=== PATIENT | male | born 1965 | race Caucasian/White ===

== ENCOUNTER 2019-04-11 15:03 | Outpatient (CLI) | payer OTHER ==
[2019-04-11 16:48] LABS: BASOPHILS % (AUTO) 0.3 % (0-1); EOSINOPHILS # (AUTO) 0.2 X10'3 (0-0.9); HEMATOCRIT 42.9 % (42.0-52.0); HEMOGLOBIN 14.7 g/dl (14.0-17.9); LYMPHOCYTES # (AUTO) 1.6 X10'3 (1.1-4.8); LYMPHOCYTES % (AUTO) 21.7 % (21-51); MEAN CORPUSCULAR HEMOGLOBIN 33.7 PG (27.0-31.0); MEAN CORPUSCULAR HGB CONC 34.3 g/dL (33.0-36.5); MEAN CORPUSCULAR VOLUME 98.3 FL (78-98); MEAN PLATELET VOLUME 8.7 FL (7.4-10.4); MONOCYTES # (AUTO) 0.6 X10'3 (0-0.9); MONOCYTES % (AUTO) 8.3 % (2-12); NEUTROPHILS # (AUTO) 4.9 X10'3 (1.8-7.7); NEUTROPHILS % (AUTO) 66.7 % (42-75); PLATELET COUNT 204 X10'3 (140-440); RED BLOOD COUNT 4.37 X10'6 (4.70-6.10); RED CELL DISTRIBUTION WIDTH 13.2 % (11.5-14.5); WHITE BLOOD COUNT 7.3 X10'3 (4.5-11.0)
[2019-04-11 17:05] LABS: C-REACTIVE PROTEIN 1.04 MG/DL (0.0-0.5)
== END 2019-04-11 23:59 | disposition home or self-care (01) ==
LOC: EEVIPCON 15:03 → LAB 15:03
PROVIDERS: ATTEND Orthopaedic Surgery
DX: M19.072 Primary osteoarthritis, left ankle and foot (principal); M77.32 Calcaneal spur, left foot; M25.472 Effusion, left ankle; M77.8 Other enthesopathies, not elsewhere classified; M10.9 Gout, unspecified; F17.200 Nicotine dependence, unspecified, uncomplicated
CPT/HCPCS: 36415; 73610; 73630; 84550; 85025; 85651; 86060; 86140

== ENCOUNTER 2019-04-14 04:58 | Day surgery (SDC) | payer OTHER ==
[~2019-04-14] VITALS: Ht 185.4 cm; Wt 118.2 kg
[2019-04-14] VITALS (9 sets, daily range): BP systolic 161–175; BP diastolic 91–98
[2019-04-14] MEDS ORDERED: ACET-812 PO (05:22)
[2019-04-14] MEDS ORDERED: fentaNYL/PF 50MCG/1 ML 2ML syringe ONE (06:06)
[2019-04-14] MEDS ORDERED: propofol inj 20 ML IV ONE ×2 (06:06)
[2019-04-14] MEDS ORDERED: midazolam 2 mg/2 ml injection ONE (06:06)
== END 2019-04-14 07:43 | disposition home or self-care (01) ==
LOC: GI LAB 04:58 → EEVIPCON 06:15 → GI LAB 07:43
PROVIDERS: ATTEND Internal Medicine Gastroenterology
DX: R19.7 Diarrhea, unspecified (principal); K57.30 Diverticulosis of large intestine without perforation or abscess without bleeding; K64.0 First degree hemorrhoids; E66.9 Obesity, unspecified; Z68.34 Body mass index [BMI] 34.0-34.9, adult; Z88.0 Allergy status to penicillin
CPT/HCPCS: 45380; J2250; J2704; J3010; J7040; A4615; A4620

== ENCOUNTER 2019-07-29 15:44 | Outpatient (CLI) | payer OTHER ==
[~2019-07-29 15:44] MED LIST: ACET-812 PO
== END 2019-07-29 23:59 | disposition home or self-care (01) ==
LOC: LAB 15:44
PROVIDERS: ATTEND Emergency Medicine
DX: Z00.00 Encounter for general adult medical examination without abnormal findings (principal); Z11.59 Encounter for screening for other viral diseases
CPT/HCPCS: 36415; 87502; 87503; 87635

== ENCOUNTER 2019-08-03 09:39 | Outpatient (CLI) | payer OTHER ==
[2019-08-03 10:43] LABS: BASOPHILS % (AUTO) 0.4 % (0-1); EOSINOPHILS # (AUTO) 0.4 X10'3 (0-0.9); EOSINOPHILS % (AUTO) 7.6 % (0-6); HEMATOCRIT 44.6 % (42.0-52.0); HEMOGLOBIN 15.4 g/dl (14.0-17.9); LYMPHOCYTES # (AUTO) 1.9 X10'3 (1.1-4.8); LYMPHOCYTES % (AUTO) 34.1 % (21-51); MEAN CORPUSCULAR HEMOGLOBIN 33.9 PG (27.0-31.0); MEAN CORPUSCULAR HGB CONC 34.5 g/dL (33.0-36.5); MEAN CORPUSCULAR VOLUME 98.1 FL (78-98); MEAN PLATELET VOLUME 8.5 FL (7.4-10.4); MONOCYTES # (AUTO) 0.5 X10'3 (0-0.9); MONOCYTES % (AUTO) 8.3 % (2-12); NEUTROPHILS # (AUTO) 2.7 X10'3 (1.8-7.7); NEUTROPHILS % (AUTO) 49.6 % (42-75); PLATELET COUNT 193 X10'3 (140-440); RED BLOOD COUNT 4.54 X10'6 (4.70-6.10); RED CELL DISTRIBUTION WIDTH 14.1 % (11.5-14.5); WHITE BLOOD COUNT 5.5 X10'3 (4.5-11.0)
[2019-08-03 11:09] LABS: ALANINE AMINOTRANSFERASE 59 U/L (12-78); ALBUMIN 3.9 G/DL (3.4-5.0); ALBUMIN/GLOBULIN RATIO 1.1 (1.1-1.5); ALKALINE PHOSPHATASE 79 IU/L (46-116); ANION GAP 10 (8-16); ASPARTATE AMINO TRANSFERASE 40 U/L (10-37); BILIRUBIN,TOTAL 0.3 MG/DL (0.1-1.0); BLOOD UREA NITROGEN 7 MG/DL (7-18); BUN/CREATININE RATIO 9.3 (5.4-32.0); C-REACTIVE PROTEIN 1.69 MG/DL (0.0-0.5); CALCIUM 8.7 MG/DL (8.5-10.1); CHLORIDE 106 MMOL/L (99-107); CHOL/HDL RATIO 3.6 (0.00-4.99); CHOLESTEROL 206 MG/DL (0-200); CREATININE 0.75 MG/DL (0.60-1.10); GLUCOSE 86 MG/DL (70-104); HDL CHOLESTEROL 58 MG/DL (35-60); LDL CHOLESTEROL 117 MG/DL (50-100); SODIUM 143 MMOL/L (135-145); TOTAL CARBON DIOXIDE 27.5 MMOL/L (24-32); TOTAL PROTEIN 7.6 G/DL (6.4-8.2); TRIGLYCERIDES 220 MG/DL (20-135); eGFR > 90 ML/MIN
[2019-08-03 11:11] LABS: HEMOGLOBIN A1C 5.3 % (4.5-6.2)
[2019-08-05 07:11] LABS: IMMUNOGLOBULIN A, QN, SERUM 314 mg/dL (90-386); IMMUNOGLOBULIN M, QN, SERUM 107 mg/dL (20-172)
== END 2019-08-03 23:59 | disposition home or self-care (01) ==
LOC: CARD DIAG 09:39
PROVIDERS: ATTEND Internal Medicine Interventional Cardiology
DX: I08.0 Rheumatic disorders of both mitral and aortic valves (principal); I65.23 Occlusion and stenosis of bilateral carotid arteries; I10 Essential (primary) hypertension; E78.5 Hyperlipidemia, unspecified; R73.02 Impaired glucose tolerance (oral); Z79.899 Other long term (current) drug therapy
CPT/HCPCS: 36415; 80053; 80061; 82784; 82785; 82787; 83036; 84443; 85025; 86140; 93306; 93880

== ENCOUNTER 2019-08-18 12:12 | Outpatient (CLI) | payer OTHER | END 2019-08-18 23:59 | disposition home or self-care (01) | LOC: LAB 12:12 | PROVIDERS: ATTEND Otolaryngology | DX: B27.90 Infectious mononucleosis, unspecified without complication (principal) | CPT/HCPCS: 36415 ==

== ENCOUNTER 2019-08-31 15:30 | Outpatient (CLI) | payer OTHER | END 2019-08-31 17:00 | disposition home or self-care (01) | LOC: 64 CT 15:30 | PROVIDERS: ATTEND Internal Medicine Interventional Cardiology | DX: Z13.6 Encounter for screening for cardiovascular disorders (principal) | CPT/HCPCS: 75571 ==

== ENCOUNTER 2019-11-02 08:26 | Outpatient (CLI) | payer BC ==
[2019-11-02 09:49] LABS: ALANINE AMINOTRANSFERASE 57 U/L (12-78); ALBUMIN 3.9 G/DL (3.4-5.0); ALBUMIN/GLOBULIN RATIO 1.1 (1.1-1.5); ALKALINE PHOSPHATASE 84 IU/L (46-116); ANION GAP 8 (8-16); ASPARTATE AMINO TRANSFERASE 31 U/L (10-37); BILIRUBIN,TOTAL 0.6 MG/DL (0.1-1.0); BLOOD UREA NITROGEN 12 MG/DL (7-18); BUN/CREATININE RATIO 12.2 (5.4-32.0); CALCIUM 9.2 MG/DL (8.5-10.1); CHLORIDE 105 MMOL/L (99-107); CHOL/HDL RATIO 2.8 (0.00-4.99); CHOLESTEROL 158 MG/DL (0-200); CREATININE 0.98 MG/DL (0.60-1.10); GLUCOSE 104 MG/DL (70-104); HDL CHOLESTEROL 57 MG/DL (35-60); LDL CHOLESTEROL 73 MG/DL (50-100); POTASSIUM 4.4 MMOL/L (3.5-5.1); SODIUM 142 MMOL/L (135-145); TOTAL CARBON DIOXIDE 28.6 MMOL/L (24-32); TOTAL PROTEIN 7.6 G/DL (6.4-8.2); TRIGLYCERIDES 213 MG/DL (20-135); eGFR 79 ML/MIN
[2019-11-03] MEDS ORDERED: AZIL80TA PO (14:39)
[2019-11-03] MEDS ORDERED: ROSU20TA2 PO (14:39)
[2019-11-03] MEDS ORDERED: NEBI5TAB10 PO (14:39)
== END 2019-11-02 23:59 | disposition home or self-care (01) ==
LOC: EEVIPCON 08:26 → LAB 08:26
PROVIDERS: ATTEND Internal Medicine Interventional Cardiology
DX: I10 Essential (primary) hypertension (principal); E78.5 Hyperlipidemia, unspecified
CPT/HCPCS: 36415; 80053; 80061

== ENCOUNTER 2019-11-09 05:22 | Day surgery (SDC) | payer BC ==
[2019-11-07 15:51] LABS: BASOPHILS # (AUTO) 0.1 X10'3 (0-0.2); BASOPHILS % (AUTO) 0.5 % (0-1); EOSINOPHILS # (AUTO) 0.3 X10'3 (0-0.9); EOSINOPHILS % (AUTO) 2.6 % (0-6); LYMPHOCYTES % (AUTO) 18.3 % (21-51); MEAN CORPUSCULAR HGB CONC 33.8 g/dL (33.0-36.5); MEAN CORPUSCULAR VOLUME 100.4 FL (78-98); MEAN PLATELET VOLUME 8.8 FL (7.4-10.4); MONOCYTES # (AUTO) 0.9 X10'3 (0-0.9); MONOCYTES % (AUTO) 8.1 % (2-12); NEUTROPHILS # (AUTO) 7.5 X10'3 (1.8-7.7); NEUTROPHILS % (AUTO) 70.5 % (42-75); PRE OP HEMOGLOBIN 13.9 g/dL (14.0-17.9); PRE OP PLATELET COUNT 207 X10'3 (140-440); RED BLOOD COUNT 4.08 X10'6 (4.70-6.10); RED CELL DISTRIBUTION WIDTH 13.4 % (11.5-14.5)
[2019-11-07 15:51] LABS: CLARITY,URINE CLEAR (Clear); COLOR,URINE YELLOW (Yellow); GLUCOSE, URINE NEGATIVE (Neg); KETONES,URINE NEGATIVE (Neg); LEUKOCYTE ESTERASE ,URINE NEGATIVE (Neg); NITRITES, URINE NEGATIVE (Neg); OCCULT BLOOD,URINE NEGATIVE (Neg); PH,URINE 5.5 (4.8-8.0); PROTEIN,URINE NEGATIVE (Neg); UROBILINOGEN,URINE 0.2 E.U/dL (0.2-1.0)
[2019-11-07 15:55] LABS: UA COLLECTION TYPE CLN CATCH MIDSTREAM
[2019-11-07 16:05] LABS: ALBUMIN/GLOBULIN RATIO 1.1 (1.1-1.5); ALKALINE PHOSPHATASE 103 IU/L (46-116); BLOOD UREA NITROGEN 14 MG/DL (7-18); BUN/CREATININE RATIO 13.6 (5.4-32.0); CALCIUM 8.9 MG/DL (8.5-10.1); CHLORIDE 103 MMOL/L (99-107); CREATININE 1.03 MG/DL (0.60-1.10); PRE OP ALT 56 U/L (30-65); PRE OP ANION GAP 9 (8-16); PRE OP AST 26 U/L (10-37); PRE OP BILIRUB, TOTAL 0.3 MG/DL (0.0-1.0); PRE OP GLUCOSE 137 MG/DL (70-104); PRE OP POTASSIUM 4.5 MMOL/L (3.4-5.1); PRE OP SODIUM 140 MMOL/L (135-145); TOTAL CARBON DIOXIDE 28.4 MMOL/L (24-32); TOTAL PROTEIN 7.5 G/DL (6.4-8.2); eGFR 75 ML/MIN
[2019-11-07 16:10] LABS: PRE OP PARTIAL THROMB. TIME 25 SECONDS (22-32); PRE OP PROTIME 9.3 SECONDS (9.0-12.0)
[2019-11-07 16:20] LABS: PRE OP INR < 0.9 INR
[2019-11-09] VITALS (12 sets, daily range): BP systolic 112–126; BP diastolic 56–72
[~2019-11-09] VITALS: Ht 185.4 cm; Wt 134.2 kg
[~2019-11-09 05:22] MED LIST changes: -ACET-812 PO; +AZIL80TA PO; +NEBI5TAB10 PO; +ROSU20TA2 PO; +ringers solution, lacted 1,000 ML IV SCH
[2019-11-09] MEDS ORDERED: DOCUMENT DATE & TIME OF BETA-BLOCKER PO ONE (05:30)
[2019-11-09] MEDS ORDERED: famotidine 20mg tablet PO ONE (05:30)
[2019-11-09] MEDS ORDERED: clindamycin-Cleocin 900mg/D5W 50 ML IV ONE (05:30)
[2019-11-09] MEDS ORDERED: LIDOcaine 1% (10mg/ml) 2ml vial ONE (06:09)
[2019-11-09] MEDS ORDERED: BUPIVAcaine/PF 2.5 mg/ml (0.25%) 30ml vial ONE (06:49)
[2019-11-09] MEDS ORDERED: midazolam 2 mg/2 ml injection ONE (07:00)
[2019-11-09] MEDS ORDERED: fentaNYL/PF 50MCG/1 ML 2ML syringe ONE (07:00)
[2019-11-09] MEDS ORDERED: propofol inj 20 ML IV ONE (07:03)
[2019-11-09] MEDS ORDERED: ringers solution, lacted 1,000 ML IV SCH (07:44)
[2019-11-09] MEDS ORDERED: ondansetron/PF 4mg/2ml inj IV PRN (07:45)
[2019-11-09] MEDS ORDERED: proCHLORperazine 10 MG/2 ml inj IV PRN (07:45)
[2019-11-09] MEDS ORDERED: morphine 4 MG/ML inj SYRINge IV PRN (07:45)
[2019-11-09] MEDS ORDERED: sevoflurane 250ml liquid IH ONE (07:45)
[2019-11-09] MEDS ORDERED: meperidine/PF 25mg/ml syringe IV PRN ×2 (07:45)
[2019-11-09] MEDS ORDERED: morphine 2 MG/ML inj. syringe IV PRN (07:45)
[2019-11-09] MEDS ORDERED: dexamethasone sod phosphate 4mg/ml inj. ONE (07:56)
[2019-11-09] MEDS ORDERED: ondansetron/PF 4mg/2ml inj ONE (08:29)
[2019-11-09] MEDS ORDERED: acetaminophen 1,000mg/100ml IV 100 ML IV ONE (08:31)
[2019-11-09] MEDS ORDERED: ePHEDrine 50MG/ML INJ. ONE (08:33)
[2019-11-09] MEDS ORDERED: mupirocin 2% ointment 22GM ONE (09:15)
--- NOTE | 2019-11-09 09:25 | NUR ---
Received from OR via BED, accompanied by Anesthesiologist DR STEINER-- and report given by Anesthesiolgist. PATIENT A&OX4, DENIES PAIN, V/S WNL, NEUROVASCULAR CHECKS INTACT, 20G PIV RUE, SCD ON, DRESSING TO BILATERAL BREAST AREA WITH A MOR TO EACH SITE WITH MINIMAL OUTPUT.
--- NOTE | 2019-11-09 09:30 | NUR ---
NO DISCHARGE INSTRUCTIONS WRITTEN FOR PATIENT. I SPOKE WITH DR MCGINNIS AND HE STATED THAT HE GAVE VERBAL DISCHARGE INSTRUCTION TO PATIENTS DR BEEBE WHICH SHE CONFIRMED. PATIENT WILL BE DISCHARGED WITHOUT ANY WRITTEN PAPERWORK FOR DISCHARGE REQUESTED BY DR MCGINNIS.
[2019-11-09] MEDS: meperidine/PF 25mg/ml syringe IV PRN ×2 (10:01→10:08)
[2019-11-09] MEDS ORDERED: oxyCODONE/APAP 10/325mg tablet PO ONE (10:10)
--- NOTE | 2019-11-09 11:00 | NUR ---
PATIENT A&OX4, DENIES PAIN, V/S WNL, NEUROVASCULAR CHECKS INTACT, 20G PIV RUE D/C, SCD OFF, DRESSING TO BILATERAL BREAST AREA WITH A MOR TO EACH SITE WITH MINIMAL OUTPUT. DISCHARGE INSTRUCTIONS GIVEN BY DR MCGINNIS. . PATIENT D/C HOME WITH ALL BELONGINGS AND FAMILY GAVE TRANSPORT HOME.
== END 2019-11-09 11:00 | disposition home or self-care (01) ==
LOC: PAS 05:22 → EEVIPCON 07:30 → PAS 11:00
PROVIDERS: ATTEND Surgery
DX: N62 Hypertrophy of breast (principal); I25.10 Atherosclerotic heart disease of native coronary artery without angina pectoris; I10 Essential (primary) hypertension; Z11.59 Encounter for screening for other viral diseases; Z72.89 Other problems related to lifestyle; Z79.899 Other long term (current) drug therapy; Z88.0 Allergy status to penicillin; F17.290 Nicotine dependence, other tobacco product, uncomplicated; Z79.01 Long term (current) use of anticoagulants; R35.0 Frequency of micturition
CPT/HCPCS: 19300; 36415; 80053; 81003; 82948; 84153; 85025; 85610; 85730; J0131; J1100; J2001; J2175; J2250; J2405; J2704; J3010; J3490; J7120; U0003; A4618; A6253; A6449; A7000

== ENCOUNTER 2020-04-09 14:25 | Emergency (ER) | payer BC ==
[~2020-04-09] VITALS: Ht 185.4 cm; Wt 127.3 kg
[~2020-04-09 14:25] MED LIST changes: -ringers solution, lacted 1,000 ML IV SCH
[2020-04-09 15:03] VITALS: BP 148/54
== END 2020-04-09 15:05 | disposition home or self-care (01) ==
LOC: ER 14:26 → EEVIPCON 14:26 → ER 15:05
DX: S83.8X1A Sprain of other specified parts of right knee, initial encounter (principal); Z88.0 Allergy status to penicillin; Z79.899 Other long term (current) drug therapy; W18.39XA Other fall on same level, initial encounter; Y93.89 Activity, other specified; Y92.89 Other specified places as the place of occurrence of the external cause; Y99.8 Other external cause status
CPT/HCPCS: 73564; 99283

== ENCOUNTER 2020-04-19 07:41 | Outpatient (CLI) | payer BC ==
[2020-04-18 16:15] LABS: ALBUMIN 4.1 G/DL (3.4-5.0); ANION GAP 9 (8-16); BLOOD UREA NITROGEN 24 MG/DL (7-18); BUN/CREATININE RATIO 21.4 (5.4-32.0); CALCIUM 9.1 MG/DL (8.5-10.1); CHLORIDE 105 MMOL/L (99-107); CREATININE 1.12 MG/DL (0.60-1.10); GLUCOSE 138 MG/DL (70-104); POTASSIUM 4.3 MMOL/L (3.5-5.1); SODIUM 142 MMOL/L (135-145); TOTAL CARBON DIOXIDE 28.4 MMOL/L (24-32); eGFR 68 ML/MIN
[2020-04-19] MEDS ORDERED: iohexol 350MG/ML 100ml bottle IV ONE (09:10)
[2020-04-19 09:23] VITALS: BP 128/67
[2020-04-19] MEDS ORDERED: metoprolol tartrate 1mg/ml inj IV ONE (09:30)
[2020-04-19] MEDS ORDERED: nitroGLYCERIN 0.4mg SUBLingual tab SL ONE (09:30)
--- NOTE | 2020-04-19 09:45 | NUR ---
Patient given 0.8mg Sublingual Nitroglycerin per Cardiac CTA protocol
[2020-04-19 10:08] VITALS: BP 132/62
--- NOTE | 2020-04-19 10:10 | NUR ---
Patient VSS no SS of Bradycardia/Hypotension IV removed and discharged
== END 2020-04-19 23:59 | disposition home or self-care (01) ==
LOC: 64 CT 07:41
PROVIDERS: ATTEND Internal Medicine Interventional Cardiology
DX: I25.10 Atherosclerotic heart disease of native coronary artery without angina pectoris (principal); M47.814 Spondylosis without myelopathy or radiculopathy, thoracic region; I10 Essential (primary) hypertension; E78.5 Hyperlipidemia, unspecified; E66.3 Overweight; F17.290 Nicotine dependence, other tobacco product, uncomplicated; R09.89 Other specified symptoms and signs involving the circulatory and respiratory systems; I47.9 Paroxysmal tachycardia, unspecified; Z82.49 Family history of ischemic heart disease and other diseases of the circulatory system
CPT/HCPCS: 36415; 75572; 80048; Q9967; J3490

== ENCOUNTER 2021-05-01 12:30 | Outpatient (CLI) | payer BC | END 2021-05-01 23:59 | disposition home or self-care (01) | LOC: RAD 12:30 | PROVIDERS: ATTEND Orthopaedic Surgery | DX: M54.2 Cervicalgia (principal); R20.0 Anesthesia of skin; R20.2 Paresthesia of skin | CPT/HCPCS: 72050 ==

== ENCOUNTER 2021-05-08 13:00 | Emergency (ER) | payer BC ==
[~2021-05-08] VITALS: Ht 185.4 cm; Wt 136.4 kg
[2021-05-08] MEDS ORDERED: normal saline 1000ML IV soln IVB ONE (13:05)
[2021-05-08] MEDS ORDERED: LORazepam 2 mg/ml vial IV ONE (13:15)
[2021-05-08 13:37] LABS: BASOPHILS % (AUTO) 0.4 % (0-1); EOSINOPHILS # (AUTO) 0.1 X10'3 (0-0.9); EOSINOPHILS % (AUTO) 1.1 % (0-6); HEMATOCRIT 38.8 % (42.0-52.0); HEMOGLOBIN 13.1 g/dl (14.0-17.9); LYMPHOCYTES # (AUTO) 1.5 X10'3 (1.1-4.8); LYMPHOCYTES % (AUTO) 27.4 % (21-51); MEAN CORPUSCULAR HEMOGLOBIN 34.6 PG (27.0-31.0); MEAN CORPUSCULAR HGB CONC 33.7 g/dL (33.0-36.5); MEAN CORPUSCULAR VOLUME 102.4 FL (78-98); MEAN PLATELET VOLUME 8.3 FL (7.4-10.4); MONOCYTES # (AUTO) 0.5 X10'3 (0-0.9); MONOCYTES % (AUTO) 9.2 % (2-12); NEUTROPHILS # (AUTO) 3.3 X10'3 (1.8-7.7); NEUTROPHILS % (AUTO) 61.9 % (42-75); PLATELET COUNT 181 X10'3 (140-440); RED BLOOD COUNT 3.79 X10'6 (4.70-6.10); RED CELL DISTRIBUTION WIDTH 13.9 % (11.5-14.5); WHITE BLOOD COUNT 5.3 X10'3 (4.5-11.0)
[2021-05-08 13:48] LABS: ALANINE AMINOTRANSFERASE 48 U/L (12-78); ALBUMIN 3.8 G/DL (3.4-5.0); ALBUMIN/GLOBULIN RATIO 1.1 (1.1-1.5); ALKALINE PHOSPHATASE 71 IU/L (46-116); ANION GAP 11 (8-16); ASPARTATE AMINO TRANSFERASE 29 U/L (10-37); BILIRUBIN,TOTAL 0.2 MG/DL (0.1-1.0); BLOOD UREA NITROGEN 18 MG/DL (7-18); BUN/CREATININE RATIO 17.8 (5.4-32.0); CALCIUM 9.2 MG/DL (8.5-10.1); CHLORIDE 106 MMOL/L (99-107); CREATININE 1.01 MG/DL (0.60-1.10); GLUCOSE 142 MG/DL (70-104); SODIUM 143 MMOL/L (135-145); TOTAL CARBON DIOXIDE 25.6 MMOL/L (24-32); TOTAL PROTEIN 7.4 G/DL (6.4-8.2); eGFR 76 ML/MIN
[2021-05-08] MEDS ORDERED: LORA2TAB96 PO (13:55)
[2021-05-08 14:00] VITALS: BP 132/69
== END 2021-05-08 14:45 | disposition home or self-care (01) ==
LOC: EEVIPCON 13:00 → ER 13:02
DX: R42 Dizziness and giddiness (principal); Z20.822 Contact with and (suspected) exposure to COVID-19; E86.0 Dehydration; R56.9 Unspecified convulsions; R53.1 Weakness; Z88.0 Allergy status to penicillin; Z79.899 Other long term (current) drug therapy
CPT/HCPCS: 36415; 80053; 82948; 84484; 85025; 87635; 93005; 96374; 99284; C9803; J2060; J7030

== ENCOUNTER 2021-06-26 09:00 | Outpatient (CLI) | payer BC ==
[~2021-06-26 09:00] MED LIST changes: +LORA2TAB96 PO
[2021-06-26 14:46] LABS: BASOPHILS % (AUTO) 0.5 % (0-1); EOSINOPHILS # (AUTO) 0.2 X10'3 (0-0.9); EOSINOPHILS % (AUTO) 2.5 % (0-6); HEMATOCRIT 38.3 % (42.0-52.0); LYMPHOCYTES # (AUTO) 1.2 X10'3 (1.1-4.8); LYMPHOCYTES % (AUTO) 16.6 % (21-51); MEAN CORPUSCULAR HEMOGLOBIN 34.9 PG (27.0-31.0); MEAN CORPUSCULAR VOLUME 102.9 FL (78-98); MEAN PLATELET VOLUME 8.2 FL (7.4-10.4); MONOCYTES # (AUTO) 0.8 X10'3 (0-0.9); MONOCYTES % (AUTO) 11.5 % (2-12); NEUTROPHILS % (AUTO) 68.9 % (42-75); PLATELET COUNT 180 X10'3 (140-440); RED BLOOD COUNT 3.72 X10'6 (4.70-6.10); RED CELL DISTRIBUTION WIDTH 14.2 % (11.5-14.5); WHITE BLOOD COUNT 7.2 X10'3 (4.5-11.0)
[2021-06-26 15:12] LABS: ALANINE AMINOTRANSFERASE 63 U/L (12-78); ALBUMIN 4.2 G/DL (3.4-5.0); ALBUMIN/GLOBULIN RATIO 1.6 (1.1-1.5); ALKALINE PHOSPHATASE 82 IU/L (46-116); ANION GAP 7 (8-16); ASPARTATE AMINO TRANSFERASE 42 U/L (10-37); BILIRUBIN,TOTAL 0.8 MG/DL (0.1-1.0); BLOOD UREA NITROGEN 9 MG/DL (7-18); BUN/CREATININE RATIO 10.6 (5.4-32.0); CALCIUM 9.1 MG/DL (8.5-10.1); CHLORIDE 99 MMOL/L (99-107); CHOL/HDL RATIO 1.4 (0.00-4.99); CHOLESTEROL 152 MG/DL (0-200); CREATININE 0.85 MG/DL (0.60-1.10); GLUCOSE 104 MG/DL (70-104); HDL CHOLESTEROL 106 MG/DL (35-60); LDL CHOLESTEROL 27 MG/DL (50-100); POTASSIUM 4.1 MMOL/L (3.5-5.1); SODIUM 136 MMOL/L (135-145); TOTAL CARBON DIOXIDE 29.9 MMOL/L (24-32); TOTAL PROTEIN 6.8 G/DL (6.4-8.2); TRIGLYCERIDES 99 MG/DL (20-135); eGFR > 90 ML/MIN
[2021-06-26 15:19] LABS: HEMOGLOBIN A1C 5.3 % (4.5-6.2)
[2021-06-26 16:58] LABS: CLARITY,URINE CLOUDY (Clear); COLOR,URINE ORANGE (Yellow); GLUCOSE, URINE NEGATIVE (Neg); KETONES,URINE 40 mg/dl (Neg); LEUKOCYTE ESTERASE ,URINE NEGATIVE (Neg); NITRITES, URINE NEGATIVE (Neg); OCCULT BLOOD,URINE NEGATIVE (Neg); PROTEIN,URINE 100 mg/dl (Neg)
[2021-06-26 17:08] LABS: UA COLLECTION TYPE NON-SPECIFIED
[2021-06-26 17:11] LABS: MUCUS STRANDS MANY /LPF (Neg)
[2021-06-26 17:12] LABS: COARSE GRANULAR CAST >30 /LPF (NEGATIVE)
[2021-06-26 17:13] LABS: SQUAMOUS EPITHELIAL CELL,UR FEW /LPF (FEW)
[2021-06-26 17:16] LABS: BACTERIA,URINE FEW /HPF (Neg); RBC,URINE 0-2 /HPF (0-2)
[2021-06-27] MEDS ORDERED: iohexol 300mg/ml 100ml inj. ONE (09:44)
[2021-06-28 10:49] LABS: AMYLASE 28 U/L (25-115); LIPASE 110 U/L (73-393)
== END 2021-06-26 23:59 | disposition home or self-care (01) ==
LOC: RAD 09:00
PROVIDERS: ATTEND Internal Medicine
DX: N42.9 Disorder of prostate, unspecified (principal); R60.9 Edema, unspecified; R07.89 Other chest pain; M25.78 Osteophyte, vertebrae; Z68.41 Body mass index [BMI] 40.0-44.9, adult; Z83.3 Family history of diabetes mellitus
CPT/HCPCS: 36415; 71046; 80053; 80061; 81001; 82150; 83036; 83690; 84153; 84439; 84443; 85025; 85651; Q9967

== ENCOUNTER 2021-06-27 09:44 | Outpatient (CLI) | payer BC | END 2021-06-27 23:59 | disposition home or self-care (01) | LOC: RAD 09:44 | PROVIDERS: ATTEND Family Medicine | DX: K76.0 Fatty (change of) liver, not elsewhere classified (principal); D17.79 Benign lipomatous neoplasm of other sites; M47.816 Spondylosis without myelopathy or radiculopathy, lumbar region; M25.852 Other specified joint disorders, left hip; M25.851 Other specified joint disorders, right hip; I70.8 Atherosclerosis of other arteries; K86.89 Other specified diseases of pancreas; K57.30 Diverticulosis of large intestine without perforation or abscess without bleeding | CPT/HCPCS: 74177; Q9967 ==

== ENCOUNTER 2021-07-30 14:03 | Outpatient (CLI) | payer BC ==
[2021-07-30 16:12] LABS: CLARITY,URINE CLEAR (Clear); COLOR,URINE YELLOW (Yellow); GLUCOSE, URINE NEGATIVE (Neg); KETONES,URINE NEGATIVE (Neg); LEUKOCYTE ESTERASE ,URINE NEGATIVE (Neg); NITRITES, URINE NEGATIVE (Neg); OCCULT BLOOD,URINE NEGATIVE (Neg); PH,URINE 5.5 (4.8-8.0); PROTEIN,URINE NEGATIVE (Neg); UROBILINOGEN,URINE 0.2 E.U/dL (0.2-1.0)
[2021-07-30 16:24] LABS: UA COLLECTION TYPE NON-SPECIFIED
[2021-07-30 17:11] LABS: UA EOSINOPHILS NO EOS /HPF
== END 2021-07-30 23:59 | disposition home or self-care (01) ==
LOC: LAB 14:03
PROVIDERS: ATTEND Internal Medicine
DX: R82.90 Unspecified abnormal findings in urine (principal)
CPT/HCPCS: 81003; 87207

== ENCOUNTER 2021-08-02 08:58 | Outpatient (CLI) | payer BC | END 2021-08-02 23:59 | disposition home or self-care (01) | LOC: CARD DIAG 08:58 | PROVIDERS: ATTEND Internal Medicine Interventional Cardiology | DX: I08.8 Other rheumatic multiple valve diseases (principal); E78.5 Hyperlipidemia, unspecified; I10 Essential (primary) hypertension; F17.290 Nicotine dependence, other tobacco product, uncomplicated; Z82.49 Family history of ischemic heart disease and other diseases of the circulatory system | CPT/HCPCS: 93306 ==

== ENCOUNTER 2022-03-14 10:39 | Outpatient (CLI) | payer BC ==
[2022-03-14 11:47] LABS: HEMATOCRIT 43.5 % (42.0-52.0); MEAN CORPUSCULAR HEMOGLOBIN 34.5 PG (27.0-31.0); MEAN CORPUSCULAR VOLUME 98.9 FL (78-98); MEAN PLATELET VOLUME 8.6 FL (7.4-10.4)
[2022-03-14 11:48] LABS: BASOPHILS % (AUTO) 0.6 % (0-1); EOSINOPHILS # (AUTO) 0.2 X10'3 (0-0.9); EOSINOPHILS % (AUTO) 3.3 % (0-6); HEMOGLOBIN 15.2 g/dl (14.0-17.9); HEMOGLOBIN A1C 5.1 % (4.5-6.2); LYMPHOCYTES # (AUTO) 1.9 X10'3 (1.1-4.8); LYMPHOCYTES % (AUTO) 24.6 % (21-51); MEAN CORPUSCULAR HGB CONC 34.9 g/dL (33.0-36.5); MONOCYTES # (AUTO) 0.6 X10'3 (0-0.9); MONOCYTES % (AUTO) 8.6 % (2-12); NEUTROPHILS # (AUTO) 4.7 X10'3 (1.8-7.7); NEUTROPHILS % (AUTO) 62.9 % (42-75); PLATELET COUNT 181 X10'3 (140-440); RED CELL DISTRIBUTION WIDTH 13.8 % (11.5-14.5); WHITE BLOOD COUNT 7.5 X10'3 (4.5-11.0)
[2022-03-14 12:00] LABS: ALANINE AMINOTRANSFERASE 57 U/L (12-78); ALBUMIN/GLOBULIN RATIO 1.2 (1.1-1.5); ALKALINE PHOSPHATASE 84 IU/L (46-116); ANION GAP 9 (8-16); ASPARTATE AMINO TRANSFERASE 54 U/L (10-37); BILIRUBIN,TOTAL 0.6 MG/DL (0.1-1.0); BLOOD UREA NITROGEN 12 MG/DL (7-18); BUN/CREATININE RATIO 17.1 (5.4-32.0); CALCIUM 9.2 MG/DL (8.5-10.1); CHLORIDE 102 MMOL/L (99-107); CHOL/HDL RATIO 4.2 (0.00-4.99); CHOLESTEROL 215 MG/DL (0-200); GLUCOSE 101 MG/DL (70-104); HDL CHOLESTEROL 51 MG/DL (35-60); LDL CHOLESTEROL 126 MG/DL (50-100); POTASSIUM 3.6 MMOL/L (3.5-5.1); SODIUM 138 MMOL/L (135-145); TOTAL CARBON DIOXIDE 26.8 MMOL/L (24-32); TOTAL PROTEIN 7.3 G/DL (6.4-8.2); TRIGLYCERIDES 173 MG/DL (20-135); eGFR > 90 ML/MIN
== END 2022-03-14 23:59 | disposition home or self-care (01) ==
LOC: LAB 10:39
PROVIDERS: ATTEND Internal Medicine
DX: Z00.00 Encounter for general adult medical examination without abnormal findings (principal); N42.9 Disorder of prostate, unspecified; Z83.3 Family history of diabetes mellitus
CPT/HCPCS: 80053; 80061; 83036; 83525; 84681; 85025

== ENCOUNTER 2022-07-31 08:57 | Outpatient (CLI) | payer BC ==
[2022-07-31 11:26] LABS: BASOPHILS % (AUTO) 0.8 % (0-1); EOSINOPHILS # (AUTO) 0.2 X10'3 (0-0.9); EOSINOPHILS % (AUTO) 2.9 % (0-6); HEMATOCRIT 42.1 % (42.0-52.0); HEMOGLOBIN 14.1 g/dl (14.0-17.9); LYMPHOCYTES # (AUTO) 1.9 X10'3 (1.1-4.8); LYMPHOCYTES % (AUTO) 31.7 % (21-51); MEAN CORPUSCULAR HEMOGLOBIN 34.8 PG (27.0-31.0); MEAN CORPUSCULAR HGB CONC 33.6 g/dL (33.0-36.5); MEAN CORPUSCULAR VOLUME 103.5 FL (78-98); MEAN PLATELET VOLUME 8.9 FL (7.4-10.4); MONOCYTES # (AUTO) 0.7 X10'3 (0-0.9); MONOCYTES % (AUTO) 11.9 % (2-12); NEUTROPHILS # (AUTO) 3.1 X10'3 (1.8-7.7); NEUTROPHILS % (AUTO) 52.7 % (42-75); PLATELET COUNT 213 X10'3 (140-440); RED BLOOD COUNT 4.06 X10'6 (4.70-6.10); RED CELL DISTRIBUTION WIDTH 13.8 % (11.5-14.5); WHITE BLOOD COUNT 5.8 X10'3 (4.5-11.0)
[2022-07-31 11:30] LABS: HEMOGLOBIN A1C 5.3 % (4.5-6.2)
[2022-07-31 11:37] LABS: ALANINE AMINOTRANSFERASE 75 U/L (12-78); ALBUMIN 4.3 G/DL (3.4-5.0); ALBUMIN/GLOBULIN RATIO 1.2 (1.1-1.5); ALKALINE PHOSPHATASE 79 IU/L (46-116); ANION GAP 7 (8-16); ASPARTATE AMINO TRANSFERASE 41 U/L (10-37); BILIRUBIN,TOTAL 0.6 MG/DL (0.1-1.0); BLOOD UREA NITROGEN 16 MG/DL (7-18); BUN/CREATININE RATIO 18.6 (10.0-20.0); CALCIUM 9.5 MG/DL (8.5-10.1); CHLORIDE 102 MMOL/L (99-107); CHOL/HDL RATIO 4.7 (0.00-4.99); CHOLESTEROL 262 MG/DL (0-200); CREATININE 0.86 MG/DL (0.60-1.10); GLUCOSE 97 MG/DL (70-104); HDL CHOLESTEROL 56 MG/DL (35-60); LDL CHOLESTEROL 172 MG/DL (50-100); POTASSIUM 3.8 MMOL/L (3.5-5.1); SODIUM 140 MMOL/L (135-145); TOTAL CARBON DIOXIDE 30.8 MMOL/L (24-32); TOTAL PROTEIN 7.8 G/DL (6.4-8.2); TRIGLYCERIDES 195 MG/DL (20-135); eGFR > 90 ML/MIN
[2022-07-31 13:01] LABS: CLARITY,URINE CLEAR (Clear); COLOR,URINE YELLOW (Yellow); GLUCOSE, URINE NEGATIVE (Neg); KETONES,URINE NEGATIVE (Neg); LEUKOCYTE ESTERASE ,URINE NEGATIVE (Neg); NITRITES, URINE NEGATIVE (Neg); OCCULT BLOOD,URINE NEGATIVE (Neg); PROTEIN,URINE NEGATIVE (Neg); UROBILINOGEN,URINE 0.2 E.U/dL (0.2-1.0)
[2022-07-31 13:04] LABS: UA COLLECTION TYPE CLN CATCH MIDSTREAM
== END 2022-07-31 23:59 | disposition home or self-care (01) ==
LOC: LAB 08:57
PROVIDERS: ATTEND Internal Medicine
DX: E78.5 Hyperlipidemia, unspecified (principal); I10 Essential (primary) hypertension; N42.9 Disorder of prostate, unspecified; Z83.3 Family history of diabetes mellitus; Z68.41 Body mass index [BMI] 40.0-44.9, adult
CPT/HCPCS: 36415; 80053; 80061; 81003; 83036; 84153; 85025

== ENCOUNTER 2022-11-06 10:03 | Outpatient (CLI) | payer BC ==
[2022-11-07 08:17] LABS: BASOPHILS % (AUTO) 0.4 % (0-1); EOSINOPHILS # (AUTO) 0.2 X10'3 (0-0.9); EOSINOPHILS % (AUTO) 2.8 % (0-6); HEMATOCRIT 42.9 % (42.0-52.0); HEMOGLOBIN 14.5 g/dl (14.0-17.9); LYMPHOCYTES # (AUTO) 1.6 X10'3 (1.1-4.8); LYMPHOCYTES % (AUTO) 26.9 % (21-51); MEAN CORPUSCULAR HEMOGLOBIN 34.7 PG (27.0-31.0); MEAN CORPUSCULAR HGB CONC 33.9 g/dL (33.0-36.5); MEAN CORPUSCULAR VOLUME 102.4 FL (78-98); MEAN PLATELET VOLUME 9.2 FL (7.4-10.4); MONOCYTES # (AUTO) 0.6 X10'3 (0-0.9); MONOCYTES % (AUTO) 10.8 % (2-12); NEUTROPHILS # (AUTO) 3.4 X10'3 (1.8-7.7); NEUTROPHILS % (AUTO) 59.1 % (42-75); PLATELET COUNT 218 X10'3 (140-440); RED BLOOD COUNT 4.19 X10'6 (4.70-6.10); RED CELL DISTRIBUTION WIDTH 14.4 % (11.5-14.5); WHITE BLOOD COUNT 5.8 X10'3 (4.5-11.0)
[2022-11-07 08:32] LABS: ALANINE AMINOTRANSFERASE 61 U/L (12-78); ALBUMIN/GLOBULIN RATIO 1.2 (1.1-1.5); ALKALINE PHOSPHATASE 72 IU/L (46-116); ANION GAP 8 (8-16); ASPARTATE AMINO TRANSFERASE 25 U/L (10-37); BILIRUBIN,TOTAL 0.7 MG/DL (0.1-1.0); BLOOD UREA NITROGEN 19 MG/DL (7-18); BUN/CREATININE RATIO 22.1 (10.0-20.0); CALCIUM 9.1 MG/DL (8.5-10.1); CHLORIDE 103 MMOL/L (99-107); CREATININE 0.86 MG/DL (0.60-1.10); GLUCOSE 100 MG/DL (70-104); POTASSIUM 3.7 MMOL/L (3.5-5.1); SODIUM 140 MMOL/L (135-145); TOTAL CARBON DIOXIDE 28.9 MMOL/L (24-32); TOTAL PROTEIN 7.3 G/DL (6.4-8.2); eGFR > 90 ML/MIN
[2022-11-07 08:33] LABS: CHOL/HDL RATIO 4.4 (0.00-4.99); CHOLESTEROL 197 MG/DL (0-200); HDL CHOLESTEROL 45 MG/DL (35-60); LDL CHOLESTEROL 127 MG/DL (50-100); TRIGLYCERIDES 130 MG/DL (20-135)
[2022-11-07 08:35] LABS: HEMOGLOBIN A1C 5.1 % (4.5-6.2)
[2022-11-08 13:15] LABS: PSA, FREE 0.03 ng/mL
== END 2022-11-06 23:59 | disposition home or self-care (01) ==
LOC: LAB 10:03
PROVIDERS: ATTEND Internal Medicine
DX: R73.01 Impaired fasting glucose (principal); I10 Essential (primary) hypertension; E78.5 Hyperlipidemia, unspecified; N39.0 Urinary tract infection, site not specified; N42.9 Disorder of prostate, unspecified
CPT/HCPCS: 36415; 80053; 80061; 83036; 84153; 84154; 85025

== ENCOUNTER → 2023-05-20 | Outpatient (CLI) | payer BC ==
[2023-05-21 09:47] LABS: BASOPHILS % (AUTO) 0.6 % (0-1); EOSINOPHILS # (AUTO) 0.2 X10'3 (0-0.9); EOSINOPHILS % (AUTO) 3.1 % (0-6); HEMATOCRIT 40.3 % (42.0-52.0); HEMOGLOBIN 13.5 g/dl (14.0-17.9); LYMPHOCYTES # (AUTO) 2.3 X10'3 (1.1-4.8); LYMPHOCYTES % (AUTO) 30.2 % (21-51); MEAN CORPUSCULAR HEMOGLOBIN 33.2 PG (27.0-31.0); MEAN CORPUSCULAR HGB CONC 33.4 g/dL (33.0-36.5); MEAN CORPUSCULAR VOLUME 99.3 FL (78-98); MEAN PLATELET VOLUME 8.7 FL (7.4-10.4); MONOCYTES # (AUTO) 0.7 X10'3 (0-0.9); MONOCYTES % (AUTO) 9.4 % (2-12); NEUTROPHILS # (AUTO) 4.4 X10'3 (1.8-7.7); NEUTROPHILS % (AUTO) 56.7 % (42-75); PLATELET COUNT 207 X10'3 (140-440); RED BLOOD COUNT 4.06 X10'6 (4.70-6.10); RED CELL DISTRIBUTION WIDTH 13.6 % (11.5-14.5); WHITE BLOOD COUNT 7.7 X10'3 (4.5-11.0)
[2023-05-21 10:09] LABS: ALANINE AMINOTRANSFERASE 29 U/L (12-78); ALKALINE PHOSPHATASE 79 IU/L (46-116); ANION GAP 14 (8-16); ASPARTATE AMINO TRANSFERASE 19 U/L (10-37); BILIRUBIN,TOTAL 0.3 MG/DL (0.1-1.0); BLOOD UREA NITROGEN 47 MG/DL (7-18); CALCIUM 8.6 MG/DL (8.5-10.1); CHLORIDE 99 MMOL/L (99-107); CHOL/HDL RATIO 2.6 (0.00-4.99); CHOLESTEROL 114 MG/DL (0-200); CREATININE 2.76 MG/DL (0.60-1.10); GLUCOSE 91 MG/DL (70-104); HDL CHOLESTEROL 44 MG/DL (35-60); LDL CHOLESTEROL 43 MG/DL (50-100); POTASSIUM 4.3 MMOL/L (3.5-5.1); SODIUM 133 MMOL/L (135-145); THYROID STIMULATING HORMONE 2.32 ulU/ml (0.34-4.50); TOTAL CARBON DIOXIDE 19.9 MMOL/L (24-32); TRIGLYCERIDES 176 MG/DL (20-135); eGFR 24 ML/MIN
[2023-05-21 10:12] LABS: HEMOGLOBIN A1C 5.7 % (4.5-6.2)
== END | disposition home or self-care (01) ==
LOC: CARD DIAG 08:59
PROVIDERS: ATTEND Internal Medicine
DX: I08.8 Other rheumatic multiple valve diseases (principal); R07.89 Other chest pain; I10 Essential (primary) hypertension; E78.5 Hyperlipidemia, unspecified; N39.0 Urinary tract infection, site not specified; N42.9 Disorder of prostate, unspecified; R53.83 Other fatigue
CPT/HCPCS: 80053; 80061; 83036; 84153; 84443; 85025; 93306

== ENCOUNTER → 2023-05-25 | Outpatient (CLI) | payer BC ==
[2023-05-25 13:49] LABS: BASOPHILS # (AUTO) 0.1 X10'3 (0-0.2); BASOPHILS % (AUTO) 0.5 % (0-1); EOSINOPHILS # (AUTO) 0.2 X10'3 (0-0.9); EOSINOPHILS % (AUTO) 2.1 % (0-6); HEMATOCRIT 38.9 % (42.0-52.0); HEMOGLOBIN 12.9 g/dl (14.0-17.9); LYMPHOCYTES # (AUTO) 1.7 X10'3 (1.1-4.8); LYMPHOCYTES % (AUTO) 15.6 % (21-51); MEAN CORPUSCULAR HEMOGLOBIN 32.7 PG (27.0-31.0); MEAN CORPUSCULAR HGB CONC 33.1 g/dL (33.0-36.5); MEAN CORPUSCULAR VOLUME 98.7 FL (78-98); MEAN PLATELET VOLUME 8.9 FL (7.4-10.4); MONOCYTES # (AUTO) 0.8 X10'3 (0-0.9); MONOCYTES % (AUTO) 7.6 % (2-12); NEUTROPHILS # (AUTO) 8.2 X10'3 (1.8-7.7); NEUTROPHILS % (AUTO) 74.2 % (42-75); PLATELET COUNT 206 X10'3 (140-440); RED BLOOD COUNT 3.94 X10'6 (4.70-6.10); RED CELL DISTRIBUTION WIDTH 13.6 % (11.5-14.5)
[2023-05-25 14:12] LABS: ALANINE AMINOTRANSFERASE 40 U/L (12-78); ALBUMIN 4.1 G/DL (3.4-5.0); ALBUMIN/GLOBULIN RATIO 1.1 (1.1-1.5); ALKALINE PHOSPHATASE 79 IU/L (46-116); ANION GAP 5 (8-16); ASPARTATE AMINO TRANSFERASE 21 U/L (10-37); BILIRUBIN,TOTAL 0.4 MG/DL (0.1-1.0); BLOOD UREA NITROGEN 25 MG/DL (7-18); BUN/CREATININE RATIO 15.8 (10.0-20.0); CALCIUM 9.5 MG/DL (8.5-10.1); CHLORIDE 99 MMOL/L (99-107); CREATININE 1.58 MG/DL (0.60-1.10); GLUCOSE 162 MG/DL (70-104); PHOSPHORUS 2.6 MG/DL (2.3-4.5); POTASSIUM 3.6 MMOL/L (3.5-5.1); PRO BRAIN NATRIURETIC PEPTIDE 170 PG/ML (0-125); SODIUM 132 MMOL/L (135-145); eGFR 45 ML/MIN
[2023-05-25 17:59] LABS: CREATINE KINASE 138 U/L (39-308)
== END | disposition home or self-care (01) ==
LOC: LAB 11:47
PROVIDERS: ATTEND Specialist
DX: I10 Essential (primary) hypertension (principal)
CPT/HCPCS: 36415; 80053; 82550; 83735; 83880; 84100; 85025

== ENCOUNTER 2023-06-16 12:41 | Outpatient (CLI) | payer BC ==
[2023-06-16 13:24] LABS: BASOPHILS % (AUTO) 0.3 % (0-1); EOSINOPHILS % (AUTO) 0 % (0-6); HEMATOCRIT 39.8 % (42.0-52.0); HEMOGLOBIN 13.4 g/dl (14.0-17.9); LYMPHOCYTES # (AUTO) 0.6 X10'3 (1.1-4.8); LYMPHOCYTES % (AUTO) 4.9 % (21-51); MEAN CORPUSCULAR HEMOGLOBIN 33.4 PG (27.0-31.0); MEAN CORPUSCULAR HGB CONC 33.7 g/dL (33.0-36.5); MEAN CORPUSCULAR VOLUME 99.1 FL (78-98); MEAN PLATELET VOLUME 8.9 FL (7.4-10.4); MONOCYTES # (AUTO) 0.7 X10'3 (0-0.9); MONOCYTES % (AUTO) 5.7 % (2-12); NEUTROPHILS % (AUTO) 89.1 % (42-75); PLATELET COUNT 165 X10'3 (140-440); RED BLOOD COUNT 4.02 X10'6 (4.70-6.10); RED CELL DISTRIBUTION WIDTH 15.4 % (11.5-14.5); WHITE BLOOD COUNT 12.3 X10'3 (4.5-11.0)
[2023-06-16 13:39] LABS: ALANINE AMINOTRANSFERASE 45 U/L (12-78); ALBUMIN/GLOBULIN RATIO 0.7 (1.1-1.5); ALKALINE PHOSPHATASE 75 IU/L (46-116); ANION GAP 12 (8-16); ASPARTATE AMINO TRANSFERASE 20 U/L (10-37); BILIRUBIN,TOTAL 0.6 MG/DL (0.1-1.0); BLOOD UREA NITROGEN 19 MG/DL (7-18); BUN/CREATININE RATIO 18.1 (10.0-20.0); CALCIUM 8.6 MG/DL (8.5-10.1); CHLORIDE 99 MMOL/L (99-107); CREATININE 1.05 MG/DL (0.60-1.10); GLUCOSE 235 MG/DL (70-104); MAGNESIUM 2.3 MG/DL (1.5-2.4); POTASSIUM 4.1 MMOL/L (3.5-5.1); PRO BRAIN NATRIURETIC PEPTIDE 516 PG/ML (0-125); SODIUM 136 MMOL/L (135-145); TOTAL CARBON DIOXIDE 24.8 MMOL/L (24-32); TOTAL PROTEIN 7.2 G/DL (6.4-8.2); eGFR 72 ML/MIN
[2023-06-16 15:29] LABS: TOTAL CELLS COUNTED 100
[2023-06-16 15:30] LABS: PLATELET ESTIMATE NORMAL; POLYCHROMASIA 1+
[2023-06-16 15:31] LABS: STOMATOCYTES 1+
== END 2023-06-16 23:59 | disposition home or self-care (01) ==
LOC: LAB 12:41
PROVIDERS: ATTEND Family Medicine
DX: R53.83 Other fatigue (principal); I10 Essential (primary) hypertension; R06.00 Dyspnea, unspecified
CPT/HCPCS: 36415; 80053; 83036; 83735; 83880; 85007; 85025; 85379

== ENCOUNTER 2023-06-17 17:00 | Outpatient (CLI) | payer BC ==
[~2023-06-17 17:00] MED LIST changes: +iohexol 350MG/ML 100ml bottle IV ONE
== END 2023-06-17 23:59 | disposition home or self-care (01) ==
LOC: RAD 17:00
PROVIDERS: ATTEND Family Medicine
DX: K76.89 Other specified diseases of liver (principal); R06.02 Shortness of breath
CPT/HCPCS: 71275; J3490; Q9967

== ENCOUNTER 2023-06-17 18:57 | Inpatient (IN) | payer BC ==
[~2023-06-17] VITALS: Ht 185.4 cm; Wt 142.4 kg
[~2023-06-17 18:57] MED LIST changes: -iohexol 350MG/ML 100ml bottle IV ONE
[2023-06-17] MEDS ORDERED: potassium Cl 20 mEq SR tablet PO PRN ×2 (19:15)
[2023-06-17] MEDS ORDERED: potassium Cl 40MEQ/1/2NS 520ml 520 ML IV PRN (19:15)
[2023-06-17] MEDS ORDERED: magnesium hydroxide 30ml (MOM) UD suspension PO PRN (19:15)
[2023-06-17] MEDS ORDERED: ondansetron/PF 4mg/2ml inj IV PRN (19:15)
[2023-06-17] MEDS ORDERED: magnesium 4gm in 100ml NS 100 ML IV PRN (19:15)
[2023-06-17] MEDS ORDERED: HYDROcodone/acetaminophen 10/325mg tab PO PRN (19:15)
[2023-06-17] MEDS ORDERED: magnesium 2GM in 50ml NS 50 ML IV PRN (19:15)
[2023-06-17] MEDS ORDERED: magnesium Cl slow-release 64mg tablet PO PRN (19:15)
[2023-06-17] MEDS ORDERED: acetaminophen 325mg tablet PO PRN ×2 (19:15)
[2023-06-17] MEDS ORDERED: ipratropium/albuterol 3ml nebule NEB PRN (19:15)
[2023-06-17] MEDS ORDERED: mag hydrox/Alum hydrox/simeth 30ml oral suspension PO PRN (19:15)
[2023-06-17] MEDS: PERFLUTREN PROTEIN-A MICROSPHR (Optison) 0.22 MG/ML 3ML VIAL IV ONE (19:15)
[2023-06-17] MEDS ORDERED: acetaminophen 650mg rectal suppository RC PRN (19:15)
[2023-06-17] MEDS ORDERED: HYDROcodone/acetaminophen 5mg/325mg tablet PO PRN (19:15)
[2023-06-17] MEDS ORDERED: diphenhydrAMINE 25mg capsule PO PRN (19:15)
[2023-06-17 19:30] VITALS: BP 128/60; PULSE 90; RESP 22; TEMP 97.9; O2SAT 93
[2023-06-17] MEDS: docusate sod 100mg capsule PO SCH (20:00)
[2023-06-17] MEDS: K and/or MAG REPLACEMENT MC SCH (20:00)
[2023-06-17] MEDS: normal saline 1000ml 1,000 ML IV SCH (20:10)
[2023-06-17 20:11] LABS: BASOPHILS # (AUTO) 0.1 X10'3 (0-0.2); BASOPHILS % (AUTO) 0.9 % (0-1); EOSINOPHILS % (AUTO) 0.2 % (0-6); HEMATOCRIT 37.2 % (42.0-52.0); HEMOGLOBIN 12.5 g/dl (14.0-17.9); LYMPHOCYTES # (AUTO) 0.7 X10'3 (1.1-4.8); LYMPHOCYTES % (AUTO) 9.7 % (21-51); MEAN CORPUSCULAR HEMOGLOBIN 33.4 PG (27.0-31.0); MEAN CORPUSCULAR HGB CONC 33.6 g/dL (33.0-36.5); MEAN CORPUSCULAR VOLUME 99.5 FL (78-98); MEAN PLATELET VOLUME 9.1 FL (7.4-10.4); MONOCYTES # (AUTO) 0.5 X10'3 (0-0.9); MONOCYTES % (AUTO) 7.1 % (2-12); NEUTROPHILS # (AUTO) 5.5 X10'3 (1.8-7.7); NEUTROPHILS % (AUTO) 82.1 % (42-75); PLATELET COUNT 171 X10'3 (140-440); RED BLOOD COUNT 3.73 X10'6 (4.70-6.10); RED CELL DISTRIBUTION WIDTH 15.4 % (11.5-14.5); WHITE BLOOD COUNT 6.7 X10'3 (4.5-11.0)
[2023-06-17] MEDS: enoxaparin 40mg/0.4ml syringe SUBCUT SCH (20:11)
[2023-06-17] MEDS: cefepime 1GM/NS ADD-VANTAGE 100 ML IV SCH (20:22)
[2023-06-17] MEDS: methylPREDNISolone sod succ 125mg/2ml vial IV ONE (20:23)
[2023-06-17 20:26] LABS: APTT 25 SECONDS (22-32); INR 0.9 INR; PROTHROMBIN TIME 10.1 SECONDS (9.0-12.0)
[2023-06-17 20:39] LABS: ALANINE AMINOTRANSFERASE 44 U/L (12-78); ALBUMIN 2.8 G/DL (3.4-5.0); ALBUMIN/GLOBULIN RATIO 0.7 (1.1-1.5); ALKALINE PHOSPHATASE 89 IU/L (46-116); ANION GAP 13 (8-16); ASPARTATE AMINO TRANSFERASE 19 U/L (10-37); BILIRUBIN,TOTAL 0.4 MG/DL (0.1-1.0); BLOOD UREA NITROGEN 21 MG/DL (7-18); BUN/CREATININE RATIO 22.3 (10.0-20.0); CALCIUM 8.8 MG/DL (8.5-10.1); CHLORIDE 101 MMOL/L (99-107); CREATININE 0.94 MG/DL (0.60-1.10); GLUCOSE 248 MG/DL (70-104); POTASSIUM 3.8 MMOL/L (3.5-5.1); SODIUM 137 MMOL/L (135-145); TOTAL CARBON DIOXIDE 23.3 MMOL/L (24-32); TOTAL PROTEIN 6.9 G/DL (6.4-8.2); eGFR 82 ML/MIN
[2023-06-17 20:41] LABS: D-DIMER 0.61 MG/L FEU (0-0.50)
[2023-06-17 21:00] VITALS: RESP 22; O2SAT 97
[2023-06-17 21:10] LABS: C-REACTIVE PROTEIN 10.28 MG/DL (0.0-0.5); MAGNESIUM 2.1 MG/DL (1.5-2.4); PRO BRAIN NATRIURETIC PEPTIDE 295 PG/ML (0-125)
[2023-06-17 21:13] LABS: FERRITIN 1339 NG/ML (26-388); LACTATE DEHYDROGENASE 213 U/L (85-227)
[2023-06-17] MEDS: temazepam 15mg capsule PO PRN (21:38)
[2023-06-17] MEDS: vancomycin/NS 1 GM ADD-VANTAGE 250 ML IV SCH (21:38)
[2023-06-17 22:11] LABS: TOTAL CELLS COUNTED 100
[2023-06-17 22:12] LABS: PLATELET ESTIMATE NORMAL
[2023-06-17 22:16] LABS: ELLIPTOCYTES FEW; POIKILOCYTOSIS FEW; TOXIC VACUOLATION 1+
[2023-06-17] MEDS ORDERED: benzonatate 100mg capsule PO PRN (22:25)
[2023-06-17 23:00] VITALS: BP 129/59; PULSE 90; RESP 22; TEMP 98.4; O2SAT 95
[2023-06-17 23:04] VITALS: PULSE 74; RESP 16; O2SAT 92
[2023-06-17] MEDS: ipratropium/albuterol 3ml nebule NEB SCH (23:04)
[2023-06-17 23:12] VITALS: PULSE 74; RESP 16
[2023-06-18] VITALS (16 sets, daily range): BP systolic 118–150; BP diastolic 55–73; PULSE 68–112; RESP 13–26; TEMP 97.1–98.2; O2SAT 93–99
[2023-06-18] MEDS: methylPREDNISolone sod succ 125mg/2ml vial IV SCH (01:20)
[2023-06-18 07:13] LABS: ALANINE AMINOTRANSFERASE 45 U/L (12-78); ALBUMIN 2.5 G/DL (3.4-5.0); ALBUMIN/GLOBULIN RATIO 0.6 (1.1-1.5); ALKALINE PHOSPHATASE 78 IU/L (46-116); ANION GAP 9 (8-16); ASPARTATE AMINO TRANSFERASE 16 U/L (10-37); BILIRUBIN,TOTAL 0.4 MG/DL (0.1-1.0); BLOOD UREA NITROGEN 19 MG/DL (7-18); BUN/CREATININE RATIO 22.1 (10.0-20.0); C-REACTIVE PROTEIN 9.03 MG/DL (0.0-0.5); CHLORIDE 103 MMOL/L (99-107); CHOL/HDL RATIO 2.6 (0.00-4.99); CHOLESTEROL 176 MG/DL (0-200); CREATININE 0.86 MG/DL (0.60-1.10); GLUCOSE 261 MG/DL (70-104); HDL CHOLESTEROL 67 MG/DL (35-60); LACTATE DEHYDROGENASE 191 U/L (85-227); LDL CHOLESTEROL 79 MG/DL (50-100); MAGNESIUM 2.3 MG/DL (1.5-2.4); PHOSPHORUS 4.8 MG/DL (2.3-4.5); POTASSIUM 4.3 MMOL/L (3.5-5.1); SODIUM 138 MMOL/L (135-145); TOTAL CARBON DIOXIDE 25.7 MMOL/L (24-32); TOTAL PROTEIN 6.6 G/DL (6.4-8.2); TRIGLYCERIDES 82 MG/DL (20-135); eCRCL 105 ML/MIN; eGFR > 90 ML/MIN
[2023-06-18 07:16] LABS: BASOPHILS % (AUTO) 0.1 % (0-1); EOSINOPHILS % (AUTO) 0 % (0-6); HEMATOCRIT 35.2 % (42.0-52.0); HEMOGLOBIN 11.7 g/dl (14.0-17.9); LYMPHOCYTES # (AUTO) 0.4 X10'3 (1.1-4.8); LYMPHOCYTES % (AUTO) 9.6 % (21-51); MEAN CORPUSCULAR HEMOGLOBIN 33.5 PG (27.0-31.0); MEAN CORPUSCULAR HGB CONC 33.3 g/dL (33.0-36.5); MEAN CORPUSCULAR VOLUME 100.4 FL (78-98); MEAN PLATELET VOLUME 9.1 FL (7.4-10.4); MONOCYTES # (AUTO) 0.2 X10'3 (0-0.9); MONOCYTES % (AUTO) 4.8 % (2-12); NEUTROPHILS # (AUTO) 3.9 X10'3 (1.8-7.7); NEUTROPHILS % (AUTO) 85.5 % (42-75); PLATELET COUNT 157 X10'3 (140-440); RED BLOOD COUNT 3.51 X10'6 (4.70-6.10); RED CELL DISTRIBUTION WIDTH 15.8 % (11.5-14.5); WHITE BLOOD COUNT 4.6 X10'3 (4.5-11.0)
[2023-06-18 07:37] LABS: D-DIMER 0.35 MG/L FEU (0-0.50)
[2023-06-18] MEDS: aspirin 81mg tab.chew PO SCH (08:17)
[2023-06-18] MEDS: atorvastatin 20mg tablet PO SCH (08:18)
[2023-06-18] MEDS: metoprolol succinate 25mg (24-HOUR) SR. Tablet PO SCH (08:20)
[2023-06-18] MEDS: azithromycin 250mg tablet PO SCH (12:01)
[2023-06-18] MEDS: benzonatate 100mg capsule PO SCH (12:21)
[2023-06-18] MEDS ORDERED: ipratropium/albuterol 3ml nebule NEB SCH (15:00)
[2023-06-18] MEDS: cefepime 2g/NS 100ml ADVANTAGE 100 ML IV SCH (19:32)
[2023-06-18] MEDS: ipratropium/albuterol 3ml nebule NEB SCH (19:54)
[2023-06-18] MEDS ORDERED: VANCOMYCIN LEVEL IV ONE (20:30)
[2023-06-18] MEDS: temazepam 15mg capsule PO SCH (21:49)
[2023-06-19] VITALS (23 sets, daily range): BP systolic 124–146; BP diastolic 64–78; PULSE 68–99; RESP 12–24; TEMP 97.1–99.4; O2SAT 91–99
[2023-06-19 08:03] LABS: ALANINE AMINOTRANSFERASE 44 U/L (12-78); ALBUMIN 2.5 G/DL (3.4-5.0); ALBUMIN/GLOBULIN RATIO 0.6 (1.1-1.5); ALKALINE PHOSPHATASE 73 IU/L (46-116); ANION GAP 8 (8-16); ASPARTATE AMINO TRANSFERASE 16 U/L (10-37); BILIRUBIN,TOTAL 0.3 MG/DL (0.1-1.0); BLOOD UREA NITROGEN 22 MG/DL (7-18); BUN/CREATININE RATIO 24.2 (10.0-20.0); C-REACTIVE PROTEIN 5.32 MG/DL (0.0-0.5); CALCIUM 9.4 MG/DL (8.5-10.1); CHLORIDE 103 MMOL/L (99-107); CREATININE 0.91 MG/DL (0.60-1.10); GLUCOSE 264 MG/DL (70-104); LACTATE DEHYDROGENASE 215 U/L (85-227); MAGNESIUM 2.9 MG/DL (1.5-2.4); PHOSPHORUS 5.9 MG/DL (2.3-4.5); POTASSIUM 4.3 MMOL/L (3.5-5.1); SODIUM 139 MMOL/L (135-145); TOTAL CARBON DIOXIDE 28.2 MMOL/L (24-32); TOTAL PROTEIN 6.5 G/DL (6.4-8.2); eCRCL 99 ML/MIN; eGFR 85 ML/MIN
[2023-06-19 08:04] LABS: BASOPHILS % (AUTO) 0.1 % (0-1); EOSINOPHILS % (AUTO) 0 % (0-6); HEMATOCRIT 33.5 % (42.0-52.0); HEMOGLOBIN 11.2 g/dl (14.0-17.9); LYMPHOCYTES # (AUTO) 0.6 X10'3 (1.1-4.8); LYMPHOCYTES % (AUTO) 7.9 % (21-51); MEAN CORPUSCULAR HEMOGLOBIN 33.2 PG (27.0-31.0); MEAN CORPUSCULAR HGB CONC 33.3 g/dL (33.0-36.5); MEAN CORPUSCULAR VOLUME 99.5 FL (78-98); MONOCYTES # (AUTO) 0.5 X10'3 (0-0.9); MONOCYTES % (AUTO) 7.3 % (2-12); NEUTROPHILS # (AUTO) 6.1 X10'3 (1.8-7.7); NEUTROPHILS % (AUTO) 84.7 % (42-75); PLATELET COUNT 184 X10'3 (140-440); RED BLOOD COUNT 3.37 X10'6 (4.70-6.10); RED CELL DISTRIBUTION WIDTH 15.4 % (11.5-14.5); WHITE BLOOD COUNT 7.2 X10'3 (4.5-11.0)
[2023-06-20] VITALS (10 sets, daily range): BP systolic 120–138; BP diastolic 63–75; PULSE 78–101; RESP 16–24; TEMP 97–98.6; O2SAT 93–96
[2023-06-20 06:53] LABS: BASOPHILS % (AUTO) 0.2 % (0-1); EOSINOPHILS % (AUTO) 0 % (0-6); HEMATOCRIT 34.9 % (42.0-52.0); HEMOGLOBIN 11.7 g/dl (14.0-17.9); LYMPHOCYTES # (AUTO) 0.6 X10'3 (1.1-4.8); LYMPHOCYTES % (AUTO) 8.4 % (21-51); MEAN CORPUSCULAR HEMOGLOBIN 33.4 PG (27.0-31.0); MEAN CORPUSCULAR HGB CONC 33.5 g/dL (33.0-36.5); MEAN CORPUSCULAR VOLUME 99.8 FL (78-98); MEAN PLATELET VOLUME 8.9 FL (7.4-10.4); MONOCYTES # (AUTO) 0.4 X10'3 (0-0.9); MONOCYTES % (AUTO) 6.5 % (2-12); NEUTROPHILS # (AUTO) 5.6 X10'3 (1.8-7.7); NEUTROPHILS % (AUTO) 84.9 % (42-75); PLATELET COUNT 203 X10'3 (140-440); RED CELL DISTRIBUTION WIDTH 15.3 % (11.5-14.5); WHITE BLOOD COUNT 6.6 X10'3 (4.5-11.0)
[2023-06-20 07:07] LABS: D-DIMER 0.29 MG/L FEU (0-0.50)
[2023-06-20 07:47] LABS: ALANINE AMINOTRANSFERASE 50 U/L (12-78); ALBUMIN 2.7 G/DL (3.4-5.0); ALBUMIN/GLOBULIN RATIO 0.7 (1.1-1.5); ALKALINE PHOSPHATASE 69 IU/L (46-116); ANION GAP 11 (8-16); ASPARTATE AMINO TRANSFERASE 17 U/L (10-37); BILIRUBIN,TOTAL 0.4 MG/DL (0.1-1.0); BLOOD UREA NITROGEN 17 MG/DL (7-18); BUN/CREATININE RATIO 17.7 (10.0-20.0); C-REACTIVE PROTEIN 2.16 MG/DL (0.0-0.5); CALCIUM 8.8 MG/DL (8.5-10.1); CHLORIDE 99 MMOL/L (99-107); CREATININE 0.96 MG/DL (0.60-1.10); GLUCOSE 246 MG/DL (70-104); MAGNESIUM 2.2 MG/DL (1.5-2.4); PHOSPHORUS 5.2 MG/DL (2.3-4.5); POTASSIUM 4.4 MMOL/L (3.5-5.1); SODIUM 135 MMOL/L (135-145); TOTAL CARBON DIOXIDE 24.7 MMOL/L (24-32); TOTAL PROTEIN 6.7 G/DL (6.4-8.2); eCRCL 94 ML/MIN; eGFR 80 ML/MIN
[2023-06-20 07:57] LABS: TOTAL CELLS COUNTED 100
[2023-06-20 07:58] LABS: ANISOCYTOSIS 1+; PLATELET ESTIMATE NORMAL
[2023-06-20 08:55] LABS: LACTATE DEHYDROGENASE 212 U/L (85-227)
[2023-06-20 08:59] LABS: FERRITIN 1240 NG/ML (26-388)
[2023-06-20] MEDS ORDERED: ALBU8HFA PO (09:44)
[2023-06-20] MEDS ORDERED: CEFD300C3 PO (09:44)
[2023-06-20] MEDS ORDERED: PRED10TA23 PO (09:44)
[2023-06-20] MEDS ORDERED: ASPI81TA53 PO (09:44)
[2023-06-20] MEDS ORDERED: BENZ-111 PO (09:44)
[2023-06-20] MEDS ORDERED: BUDE10.22 INH (09:44)
[2023-06-20] MEDS ORDERED: LACT1CAP74 PO (09:53)
[2023-06-20] MEDS: methylPREDNISolone sod succ 125mg/2ml vial IV ONE (11:23)
== END 2023-06-20 11:51 | disposition home or self-care (01) | DRG 194 ==
LOC: PCU 3S 19:31 → EEVIPCON 19:31
PROVIDERS: ADMIT Family Medicine; ATTEND Family Medicine
DX: J15.9 Unspecified bacterial pneumonia (principal); R04.2 Hemoptysis; I10 Essential (primary) hypertension; E78.5 Hyperlipidemia, unspecified; Z20.822 Contact with and (suspected) exposure to COVID-19; U09.9 Post COVID-19 condition, unspecified; D53.9 Nutritional anemia, unspecified; R16.0 Hepatomegaly, not elsewhere classified; D89.839 Cytokine release syndrome, grade unspecified; Z79.899 Other long term (current) drug therapy; Z88.0 Allergy status to penicillin; Z90.13 Acquired absence of bilateral breasts and nipples; Z79.82 Long term (current) use of aspirin; Z83.3 Family history of diabetes mellitus
CPT/HCPCS: 36415; 71045; 71046; 76700; 80053; 80061; 82728; 83605; 83615; 83735; 83880; 84100; 84145; 84484; 85007; 85025; 85379; 85610; 85730; 86140; 87040; 87070; 87081; 87811; 94640; 94668; 94760; A4615; G0378; J0692; J1650; J2930; J3370; J7030

== ENCOUNTER 2023-06-28 13:25 | Emergency (ER) | payer BC ==
[~2023-06-28] VITALS: Ht 185.4 cm; Wt 142.5 kg
[~2023-06-28 13:25] MED LIST changes: +ALBU8HFA PO; +ASPI81TA53 PO; -AZIL80TA PO; +BENZ-111 PO; +BUDE10.22 INH; +CEFD300C3 PO; +LACT1CAP74 PO; -LORA2TAB96 PO; +PRED10TA23 PO
[2023-06-28 13:31] VITALS: TEMP 97.8
[2023-06-28 13:54] LABS: EOSINOPHILS # (AUTO) 0.1 X10'3 (0-0.9)
[2023-06-28 13:58] LABS: BASOPHILS # (AUTO) 0.1 X10'3 (0-0.2); BASOPHILS % (AUTO) 0.6 % (0-1); HEMATOCRIT 40.8 % (42.0-52.0); HEMOGLOBIN 13.2 g/dl (14.0-17.9); LYMPHOCYTES # (AUTO) 1.5 X10'3 (1.1-4.8); LYMPHOCYTES % (AUTO) 13.6 % (21-51); MEAN CORPUSCULAR HEMOGLOBIN 32.6 PG (27.0-31.0); MEAN CORPUSCULAR HGB CONC 32.5 g/dL (33.0-36.5); MEAN CORPUSCULAR VOLUME 100.3 FL (78-98); MEAN PLATELET VOLUME 8.1 FL (7.4-10.4); MONOCYTES # (AUTO) 0.7 X10'3 (0-0.9); MONOCYTES % (AUTO) 6.6 % (2-12); NEUTROPHILS # (AUTO) 8.9 X10'3 (1.8-7.7); NEUTROPHILS % (AUTO) 78.2 % (42-75); PLATELET COUNT 205 X10'3 (140-440); RED BLOOD COUNT 4.06 X10'6 (4.70-6.10); RED CELL DISTRIBUTION WIDTH 16.3 % (11.5-14.5); WHITE BLOOD COUNT 11.4 X10'3 (4.5-11.0)
[2023-06-28 14:12] LABS: ALANINE AMINOTRANSFERASE 50 U/L (12-78); ALBUMIN 3.4 G/DL (3.4-5.0); ALKALINE PHOSPHATASE 69 IU/L (46-116); ANION GAP 13 (8-16); ASPARTATE AMINO TRANSFERASE 17 U/L (10-37); BLOOD UREA NITROGEN 22 MG/DL (7-18); BUN/CREATININE RATIO 20.2 (10.0-20.0); CHLORIDE 102 MMOL/L (99-107); CREATININE 1.09 MG/DL (0.60-1.10); GLUCOSE 256 MG/DL (70-104); POTASSIUM 4.1 MMOL/L (3.5-5.1); SODIUM 142 MMOL/L (135-145); TOTAL CARBON DIOXIDE 27.1 MMOL/L (24-32); TOTAL PROTEIN 6.7 G/DL (6.4-8.2); eCRCL 82 ML/MIN; eGFR 69 ML/MIN
[2023-06-28 14:13] LABS: C-REACTIVE PROTEIN 0.51 MG/DL (0.0-0.5)
[2023-06-28 14:18] LABS: PRO BRAIN NATRIURETIC PEPTIDE 166 PG/ML (0-125)
[2023-06-28] MEDS ORDERED: furosemide 10 MG/1 ML 10ml inj IV ONE (15:20)
[2023-06-28] MEDS ORDERED: FURO-150 PO (15:21)
[2023-06-28] MEDS: furosemide 20 MG/2 ML vial IV ONE ×2 (15:28→15:41)
[2023-06-28 15:50] VITALS: BP 154/78; PULSE 82; RESP 14; O2SAT 98
== END 2023-06-28 15:53 | disposition home or self-care (01) ==
LOC: ER 13:25
DX: R06.09 Other forms of dyspnea (principal); Z88.0 Allergy status to penicillin; Z79.899 Other long term (current) drug therapy
CPT/HCPCS: 36415; 71045; 80053; 83880; 84145; 84484; 85025; 85651; 86140; 93005; 93308; 96374; 99285; J1940

== ENCOUNTER 2023-07-14 08:30 | Outpatient (CLI) | payer BC ==
[~2023-07-14 08:30] MED LIST changes: +FURO-150 PO
[2023-07-14 09:08] LABS: BASOPHILS % (AUTO) 0.6 % (0-1); EOSINOPHILS # (AUTO) 0.1 X10'3 (0-0.9); EOSINOPHILS % (AUTO) 1.3 % (0-6); HEMATOCRIT 39.2 % (42.0-52.0); HEMOGLOBIN 13.1 g/dl (14.0-17.9); LYMPHOCYTES # (AUTO) 1.6 X10'3 (1.1-4.8); LYMPHOCYTES % (AUTO) 27.6 % (21-51); MEAN CORPUSCULAR HEMOGLOBIN 33.5 PG (27.0-31.0); MEAN CORPUSCULAR HGB CONC 33.4 g/dL (33.0-36.5); MEAN CORPUSCULAR VOLUME 100.3 FL (78-98); MEAN PLATELET VOLUME 8.2 FL (7.4-10.4); MONOCYTES # (AUTO) 0.6 X10'3 (0-0.9); MONOCYTES % (AUTO) 10.6 % (2-12); NEUTROPHILS # (AUTO) 3.4 X10'3 (1.8-7.7); NEUTROPHILS % (AUTO) 59.9 % (42-75); PLATELET COUNT 235 X10'3 (140-440); RED BLOOD COUNT 3.91 X10'6 (4.70-6.10); RED CELL DISTRIBUTION WIDTH 15.8 % (11.5-14.5); WHITE BLOOD COUNT 5.7 X10'3 (4.5-11.0)
[2023-07-14 11:02] LABS: ALANINE AMINOTRANSFERASE 28 U/L (12-78); ALBUMIN 3.6 G/DL (3.4-5.0); ALKALINE PHOSPHATASE 74 IU/L (46-116); ANION GAP 14 (8-16); ASPARTATE AMINO TRANSFERASE 21 U/L (10-37); BILIRUBIN,TOTAL 0.6 MG/DL (0.1-1.0); BLOOD UREA NITROGEN 12 MG/DL (7-18); BUN/CREATININE RATIO 14.5 (10.0-20.0); CALCIUM 9.2 MG/DL (8.5-10.1); CHLORIDE 104 MMOL/L (99-107); CHOL/HDL RATIO 3.3 (0.00-4.99); CHOLESTEROL 191 MG/DL (0-200); CREATININE 0.83 MG/DL (0.60-1.10); GLUCOSE 115 MG/DL (70-104); HDL CHOLESTEROL 58 MG/DL (35-60); LDL CHOLESTEROL 99 MG/DL (50-100); POTASSIUM 3.7 MMOL/L (3.5-5.1); SODIUM 142 MMOL/L (135-145); TOTAL CARBON DIOXIDE 24.4 MMOL/L (24-32); TOTAL PROTEIN 7.1 G/DL (6.4-8.2); TRIGLYCERIDES 228 MG/DL (20-135); eGFR > 90 ML/MIN
== END 2023-07-14 23:59 | disposition home or self-care (01) ==
LOC: LAB 08:30
PROVIDERS: ATTEND Internal Medicine
DX: I10 Essential (primary) hypertension (principal); N39.0 Urinary tract infection, site not specified; E78.5 Hyperlipidemia, unspecified
CPT/HCPCS: 36415; 80053; 80061; 85025

== ENCOUNTER 2023-09-03 08:05 | Outpatient (CLI) | payer BC ==
[~2023-09-03 08:05] MED LIST changes: -ALBU8HFA PO; -CEFD300C3 PO; -PRED10TA23 PO
== END 2023-09-03 23:59 | disposition home or self-care (01) ==
LOC: RAD 08:05
PROVIDERS: ATTEND Orthopaedic Surgery
DX: M77.8 Other enthesopathies, not elsewhere classified (principal); M25.522 Pain in left elbow
CPT/HCPCS: 73080

== ENCOUNTER → 2023-10-20 | Outpatient (CLI) | payer BC ==
[2023-10-20 15:35] LABS: BASOPHILS % (AUTO) 0.3 % (0-1); EOSINOPHILS # (AUTO) 0.1 X10'3 (0-0.9); EOSINOPHILS % (AUTO) 2.1 % (0-6); HEMATOCRIT 39.7 % (42.0-52.0); HEMOGLOBIN 13.4 g/dl (14.0-17.9); LYMPHOCYTES % (AUTO) 16.7 % (21-51); MEAN CORPUSCULAR HEMOGLOBIN 32.7 PG (27.0-31.0); MEAN CORPUSCULAR HGB CONC 33.7 g/dL (33.0-36.5); MEAN CORPUSCULAR VOLUME 96.9 FL (78-98); MEAN PLATELET VOLUME 8.5 FL (7.4-10.4); MONOCYTES # (AUTO) 0.9 X10'3 (0-0.9); MONOCYTES % (AUTO) 14.7 % (2-12); NEUTROPHILS # (AUTO) 3.9 X10'3 (1.8-7.7); NEUTROPHILS % (AUTO) 66.2 % (42-75); PLATELET COUNT 154 X10'3 (140-440); RED BLOOD COUNT 4.09 X10'6 (4.70-6.10); RED CELL DISTRIBUTION WIDTH 14.2 % (11.5-14.5); WHITE BLOOD COUNT 5.9 X10'3 (4.5-11.0)
[2023-10-20 15:48] LABS: LIPASE 46 U/L (16-77); MAGNESIUM 1.9 MG/DL (1.5-2.4); PHOSPHORUS 3.2 MG/DL (2.3-4.5)
[2023-10-20 18:22] LABS: ALANINE AMINOTRANSFERASE 50 U/L (12-78); ALBUMIN 3.9 G/DL (3.4-5.0); ALBUMIN/GLOBULIN RATIO 1.1 (1.1-1.5); ALKALINE PHOSPHATASE 76 IU/L (46-116); ANION GAP 12 (8-16); ASPARTATE AMINO TRANSFERASE 23 U/L (10-37); BILIRUBIN,TOTAL 0.5 MG/DL (0.1-1.0); BLOOD UREA NITROGEN 10 MG/DL (7-18); BUN/CREATININE RATIO 8.8 (10.0-20.0); CALCIUM 9.1 MG/DL (8.5-10.1); CHLORIDE 100 MMOL/L (99-107); CREATININE 1.14 MG/DL (0.60-1.10); GLUCOSE 157 MG/DL (70-104); POTASSIUM 3.4 MMOL/L (3.5-5.1); SODIUM 138 MMOL/L (135-145); TOTAL CARBON DIOXIDE 26.2 MMOL/L (24-32); TOTAL PROTEIN 7.5 G/DL (6.4-8.2); eGFR 66 ML/MIN
[2023-10-20 19:29] LABS: PRO BRAIN NATRIURETIC PEPTIDE 314 PG/ML (0-125)
== END | disposition home or self-care (01) ==
LOC: RAD 09:56
PROVIDERS: ATTEND Family Medicine
DX: R06.02 Shortness of breath (principal); R05.9 Cough, unspecified; R09.89 Other specified symptoms and signs involving the circulatory and respiratory systems
CPT/HCPCS: 36415; 71046; 80053; 83690; 83735; 83880; 84100; 84145; 85025